=== PATIENT | female | born 1955 | race Caucasian/White ===

== ENCOUNTER 2021-02-08 07:14 | Day surgery (SDC) | payer BC ==
[2021-02-04 13:25] VITALS: BMI 30.4
[2021-02-08] MEDS ORDERED: PROPOFOL 20 ML ONE ×4 (07:39)
[2021-02-08] MEDS ORDERED: LIDOCAINE HCL/PF 2% SDV 5ML VIAL ONE (07:39)
[2021-02-08 08:17] VITALS: TEMP 97.8
[2021-02-08 09:37] VITALS: BP 103/65; PULSE 62
== END 2021-02-08 09:41 | disposition home or self-care (01) ==
LOC: FASU-ENDO 07:14
PROVIDERS: ATTEND Internal Medicine Gastroenterology
PROC: 0D5L8ZZ Destruction of Transverse Colon, Via Natural or Artificial Opening Endoscopic (ICD-10-PCS; principal; 2021-02-08 08:23)
DX: Z12.11 Encounter for screening for malignant neoplasm of colon (principal); K55.21 Angiodysplasia of colon with hemorrhage; K57.30 Diverticulosis of large intestine without perforation or abscess without bleeding; Z80.0 Family history of malignant neoplasm of digestive organs; Z83.71 Family history of colonic polyps